=== PATIENT | female | born 1995 ===

== ENCOUNTER 2019-06-26 09:36 | Emergency (ER) | payer SELFPAY ==
[2019-06-26 10:47] LABS: Influenza B Molecular POSITIVE (Negative)
--- NOTE | 2019-06-26 11:25 | UC ---
FLU HPI - HPI Summary HPI Summary: ONSET YESTERDAY OF BODY ACHES, HEADACHE, COUGH, MALAISE, FATIGUE AND CHILLS. NO FEVER. NO FLU SHOT THIS SEASON. WAS IN [place] FROM JUNE 06 THE . - History of Current Complaint Chief Complaint: UCGeneralIllness Stated Complaint: FLU LIKE SYMPTOMS Time Seen by Provider: 06/26/19 10:07 Hx Obtained From: Patient Onset/Duration: Gradual Onset, Lasting Hours, Still Present Severity Currently: Moderate Severity Initially: Moderate Pain Intensity: 0 Pain Scale Used: 0-10 Numeric Associated Signs & Symptoms: Positive: Myalgia, Cough, Headache - Allergy/Home Medications Allergies/Adverse Reactions: Allergies Allergy/AdvReac Type Severity Reaction Status Date / Time No Known Allergies Allergy Verified 06/26/19 10:25 Home Medications: Home Medications Acetaminophen TAB* [Tylenol TAB*] 325 mg PO ONCE 06/26/19 [History Confirmed ] Oseltamivir CAP* [Tamiflu CAP*] 75 mg PO BID #10 cap 06/26/19 [Rx] PMH/Surg Hx/FS Hx/Imm Hx Previously Healthy: Yes - Surgical History Surgical History: None - Family History Known Family History: Positive: Non-Contributory - Social History Alcohol Use: None Substance Use Type: None Smoking Status (MU): Never Smoked Tobacco Review of Systems All Other Systems Reviewed And Are Negative: Yes Constitutional: Positive: Chills, Fatigue ENT: Negative: Ear Ache, Nasal Discharge Respiratory: Positive: Cough Cardiovascular: Positive: Negative Gastrointestinal: Positive: Negative Musculoskeletal: Positive: Myalgia Neurological/Mental Status: Positive: Headache Physical Exam Triage Information Reviewed: Yes Appearance: No Pain Distress, Well-Nourished, Ill-Appearing - fatigued Vital Signs: Initial Vital Signs Temp 99.4 F 06/26/19 10:26 Pulse 80 06/26/19 10:26 Resp 16 06/26/19 10:26 BP 121/72 06/26/19 10:26 Pulse Ox 98 06/26/19 10:26 Laboratory Tests 06/26/19 10:44 Influenza B (Rapid) Positive H Vital Signs Reviewed: Yes Eyes: Positive: Conjunctiva Clear ENT: Positive: Hearing grossly normal, Pharynx normal, TMs normal Neck: Positive: Supple, Nontender, No Lymphadenopathy Respiratory Exam: Normal Cardiovascular Exam: Normal Abdomen Description: Positive: Soft Musculoskeletal: Positive: No Edema Neurological: Positive: Alert Psychological: Positive: Age Appropriate Behavior Skin: Negative: Rashes Flu Course/Dx - Course Course Of Treatment: SWAB POSITIVE FOR INFLUENZA B. TAMIFLU TWICE DAILY FOR 5 DAYS. REST, HYDRATE, OTC MEDS NEEDED. GIVEN PATIENT'S RECENT TRAVEL TO [place] WHERE CORONAVIRUS HAS SUSTAINED COMMUNITY TRANSMISSION PATIENT WAS ISOLATED IN ROOM 3 WITH HEPA FILTER. SYMPTOM ONSET 12 DAYS AFTER LEAVING [place]. [place] [facility] [place]. PT HAD NORMAL EXAM. INFLUENZA B POSITIVE. INFECTION CONTROL ADVISED US OKAY TO DISCHARGE PT WITH DIAGNOSIS AND TREATMENT FOR FLU WITH RECOMMENDATION TO WEAR A MASK. - Differential Dx/Diagnosis Provider Diagnosis: Influenza B Discharge ED - Sign-Out/Discharge Documenting (check all that apply): Patient Departure All imaging exams completed and their final reports reviewed: No Studies - Discharge Plan Condition: Stable Disposition: HOME Prescriptions: Oseltamivir CAP* [Tamiflu CAP*] 75 mg PO BID #10 cap Patient Education Materials: Influenza (ED) Referrals: [facility] [Provider Group] - If Needed Additional Instructions: SWAB POSITIVE FOR INFLUENZA B. TAMIFLU TWICE DAILY FOR 5 DAYS. OTC MEDS NEEDED FOR FEVER, BODY ACHES. STAY WELL HYDRATED AND RESTED. SEEK FOLLOW-UP IF YOU ARE NOT IMPROVING EXPECTED. RECOMMEND YOU ISOLATE YOURSELF FOR THE NEXT 1 WEEK. - Billing Disposition and Condition Condition: STABLE Disposition: Home
== END 2019-06-26 12:00 | disposition home or self-care (01) ==
LOC: UCEAST 09:36
DX: J10.1 Influenza due to other identified influenza virus with other respiratory manifestations (principal)
CPT/HCPCS: 99202; G0463